=== PATIENT | male | born 1965 | race Caucasian/White ===

== ENCOUNTER → 2017-06-02 | Outpatient (CLI) | payer OTHER ==
[~2017-06-02] MED LIST: GADOBUTROL 10 ML VIAL IVP ONE; GLUCAGON HCL 0.3 MG in SYRINGE 0.3 ML IVP ONE
== END ==
LOC: FIMAGING 08:04
PROVIDERS: ATTEND Internal Medicine Gastroenterology
DX: N28.1 Cyst of kidney, acquired (principal)
CPT/HCPCS: A9585; J1610